=== PATIENT | male | born 1970 | race Caucasian/White ===

== ENCOUNTER 2016-07-13 16:56 | Emergency (ER) | payer SELFPAY ==
[2016-07-13 17:06] VITALS: TEMP 97.7
--- NOTE | 2016-07-13 18:22 | EDPHY ---
H & P Stated Complaint: cough/congestion x 1 month HPI/ROS: CHIEF COMPLAINT: Cough, congestion, possible flu HISTORY OF PRESENT ILLNESS: patient complains of several weeks duration of cough, congestion, body aches and feels that he may have the flu. He says he occasionally has some headaches but nothing at this time. There is occasional some neck discomfort but currently no pain or stiffness. No fever but occasional chills more prominently evening. No hemoptysis or hematuria. No joint pain. No rash of any kind. Does report being in [place] in the end of May, where he reports finding occasional tics that were removed on the same day. Since that time he has no neck pain or stiffness. He has no rash. He is up-to-date on all his immunizations. No other associated complaints or modifying factors. REVIEW OF SYSTEMS: Ten systems reviewed and are negative unless otherwise noted in the HPI EXAMINATION General Appearance: Alert, no distress Head: normocephalic, atraumatic Eyes: Pupils equal and round, no conjunctival pallor or injection ENT, Mouth: Mucous membranes moist Neck: Normal inspection, supple, non-tender , full active and passive range of motion without pain in all planes. No meningismus. Respiratory: No distress or retractions. There is mild rhonchi scattered. Cardiovascular: Regular rate and rhythm Gastrointestinal: Abdomen is soft and nontender Back: non-tender, no bony abnormalities Neurological: A&O, nonfocal, normal gait Skin: Warm and dry, no rash . No petechiae. No lesions. Extremities: Nontender, no pedal edema Psychiatric: Mood and affect normal DIFFERENTIAL DIAGNOSES: Including but not limited to Bronchitis, pneumonia, influenza, upper respiratory infection, lower respiratory infection. MDM: 18:20 Cough and congestion with possible tick exposure. The patient has no rash, neck pain, headache, neck stiffness or meningismus on examination. He is very well-appearing with normal signs all within normal limits. Lungs are mostly clear with mild rhonchi but no consolidation or evidence of pneumonia. We will obtain a chest x-ray and influenza swab. He remains hemodynamically stable and in no acute distress. Cough congestion with no pneumonia on chest x-ray. Vital signs were well within normal limits. There is no rash, meningismus or headache. Flu test is negative. Likely bronchitis versus other viral illness. No indication for emergent laboratory or imaging otherwise at this time. Discharge home with prednisone as prescribed. Recommend follow up with primary care physician, [facility] if needed. Patient is comfortable this plan and discharged home in stable condition. SUPERVISION: This patient was independently evaluated without the aide of supervising physician. - Personal History Current Tetanus/Diphtheria Vaccine: Yes Tetanus Vaccine Date: 2011 - Medical/Surgical History Hx Asthma: No Hx Chronic Respiratory Disease: No Hx Diabetes: No Hx Cardiac Disease: No Hx Renal Disease: No Hx Cirrhosis: No Hx Alcoholism: No Hx HIV/AIDS: No Hx Splenectomy or Spleen Trauma: No Other PMH: denies - Social History Smoking Status: Never smoked Constitutional: Initial Vital Signs Temperature (C) 97.7 F 07/13/16 17:03 Heart Rate 62 07/13/16 17:03 Respiratory Rate 18 07/13/16 17:03 Blood Pressure 129/84 H 07/13/16 17:03 O2 Sat (%) 95 07/13/16 17:03 O2 Delivery Mode Room Air Allergies/Adverse Reactions: No Known Allergies Allergy (Verified 07/13/16 17:01) Home Medications: Medication Instructions Recorded predniSONE 60 mg PO DAILY #15 tab 07/13/16 Medical Decision Making - Data Points Laboratory Results: 07/13/16 18:30 Influenza Typ A,B (DFA) NEGATIVE FOR FLU (NEGATIVE) Departure - Departure Disposition: Home, Routine, Self-Care Clinical Impression: Cough Acute bronchitis Qualifiers: Bronchitis organism: unspecified organism Qualifier Code: (J20.9) Acute bronchitis, unspecified Condition: Good Instructions: Acute Bronchitis (ED), Dextromethorphan (By mouth) Additional Instructions: Follow up with [facility] as discussed. ED precautions as discussed Referrals: NONE *PRIMARY CARE P,. [Primary Care Provider] - As per Instructions Prescriptions: predniSONE 60 mg PO DAILY #15 tab
--- NOTE | 2016-07-13 19:08 | DX ---
Chest, Two Views at 1836 hours History: Cough. Comparison: None. Findings: Cardiac silhouette is within normal range. No pneumonia, congestive heart failure, pleura l effusion, or pneumothorax. Impression: No definite pneumonia.
[2016-07-13 20:09] VITALS: BP 136/74; PULSE 63; RESP 16; O2SAT 94
== END 2016-07-13 20:09 | disposition home or self-care (01) ==
DX: J20.9 Acute bronchitis, unspecified (principal)

== ENCOUNTER 2018-07-11 05:49 | Emergency (ER) | payer OTHER ==
[2018-07-11] MEDS ORDERED: KETOROLAC 30 MG/1 ML SDV IVP ONE (06:19)
[2018-07-11] MEDS ORDERED: NS 1,000 ML IV ONE ×2 (06:19)
[2018-07-11] MEDS ORDERED: HYDROmorphONE/DILAUDID 2 MG/ML INJ IVP ONE (06:19)
[2018-07-11] MEDS ORDERED: ONDANSETRON 4 MG/2 ML VIAL IVP ONE (06:19)
--- NOTE | 2018-07-11 06:25 | EDPHY ---
H & P Stated Complaint: L sided flank/back pain Time Seen by Provider: 07/11/18 05:56 HPI/ROS: HPI The patient presents with left-sided flank pain which has been present for the last 1-2 hours and is getting progressively worse. He describes it as both a sharp and dull pain which comes in waves. He had similar pain about a week ago but it improved after a few hours. This pain persists. He does not have any nausea or vomiting. He does not have any difficulty urinating. He has never had this pain before.. REVIEW OF SYSTEMS 10 systems were reviewed and negative with the exception of the elements mentioned in the history of present illness. PMHx: Healthy Soc Hx: [place] PHYSICAL General Appearance: Alert, uncomfortable appearing Eyes: Pupils equal and round no pallor or injection ENT, Mouth: Mucous membranes moist Respiratory: There are no retractions, lungs are clear to auscultation Cardiovascular: Regular rate and rhythm Gastrointestinal: Abdomen is soft and non-tender, no masses, bowel sounds normal Back: There is left-sided flank tenderness Neurological: A&O, moves all extremities Skin: Warm and dry, no rashes Musculoskeletal: Neck is supple non tender Extremities: symmetrical, full range of motion Psychiatric: Patient is oriented X 3, there is no agitation Source: Patient Exam Limitations: No limitations - Personal History Current Tetanus/Diphtheria Vaccine: Yes Tetanus Vaccine Date: 2011 - Medical/Surgical History Hx Asthma: No Hx Chronic Respiratory Disease: No Hx Diabetes: No Hx Cardiac Disease: No Hx Renal Disease: No Hx Cirrhosis: No Hx Alcoholism: No Hx HIV/AIDS: No Hx Splenectomy or Spleen Trauma: No Other PMH: denies - Social History Smoking Status: Never smoked Constitutional: Initial Vital Signs Temperature (C) 36.4 C 07/11/18 05:53 Heart Rate 65 07/11/18 05:53 Respiratory Rate 18 07/11/18 05:53 Blood Pressure 140/85 H 07/11/18 05:53 O2 Sat (%) 94 07/11/18 05:53 O2 Delivery Mode Room Air Allergies/Adverse Reactions: No Known Allergies Allergy (Verified 07/13/16 17:01) Home Medications: Medication Instructions Recorded predniSONE 60 mg PO DAILY #15 tab 07/13/16 Medical Decision Making - Diagnostics Imaging Results: Imaging Impressions Chest X-Ray 07/11/18 07:40 Impression: Clear lungs. No explanation for left flank pain. CT abdomen pelvis without contrast demonstrates constipation, no kidney stone or ureterolithiasis, there are liver masses up to 8 cm in size, likely hemangiomas which will need MRI for further evaluation, right kidney lesions also seen though nothing on the left or the patient is symptomatic, on discussed with Dr. Hernandez of Radiology. Imaging: Discussed imaging studies w/ call center operator Radiologist, I viewed and interpreted images myself Differential Diagnosis: 47-year-old healthy male presents with several hours of left-sided flank pain which is intermittent. This is atraumatic. Differential diagnosis includes renal colic, pyelonephritis, less likely AAA or muscle spasm. In the emergency department, patient is given IV fluids and medication for pain. CT scans obtained. This shows constipation. He does not have any kidney stones. Interestingly he does have liver lesions as well as a few lesions on his right kidney which could be benign hemangiomas the will need follow-up with MRI. I have explained this to him. Patient's pain improved while in the emergency department. Labs were unremarkable. I discussed his testing results with him. He feels perplexed because he has bowel movements regularly and doubts that this pain is coming from constipation. I explained that I would regardless like for him to try laxatives at home to see if this helps his symptoms. He is aware that he needs more imaging studies, MRI as an outpatient as well as CT scan for surveillance in a few months. Chest x-ray was performed and was unremarkable for any pleural effusion or rib fracture. He feels concerned because he is visiting from [place] in needs to decide if he should return home. I advised him to make his decisions based on the severity of his symptoms and if he improves after taking laxatives at home then he could probably continue his trip for the next several months. As he is visiting here we have made him a copy of his imaging studies. I will send him home with magnesium citrate for his constipation. I had a long conversation with him and he will be discharged from the emergency department. - Data Points Laboratory Results: Laboratory Results 07/11/18 06:40 07/11/18 06:40 Medications Given: Discontinued Medications Hydromorphone HCl (Dilaudid) 0.5 mg IVP EDNOW ONE Stop: 07/11/18 06:20 Last Admin: 07/11/18 06:41 Dose: 0.5 mg Sodium Chloride (Ns) 1,000 mls @ 0 mls/hr IV EDNOW ONE; Wide Open PRN Reason: Protocol Stop: 07/11/18 06:20 Last Admin: 07/11/18 06:37 Dose: 1,000 mls Sodium Chloride (Ns) 1,000 mls @ 0 mls/hr IV EDNOW ONE; Wide Open PRN Reason: Protocol Stop: 07/11/18 06:20 Last Admin: 07/11/18 06:37 Dose: 1,000 mls Ketorolac Tromethamine (Toradol) 15 mg IVP EDNOW ONE Stop: 07/11/18 06:20 Last Admin: 07/11/18 06:39 Dose: 15 mg Magnesium Citrate (Magnesium Citrate) 300 ml PO ONCE ONE Stop: 07/11/18 07:41 Last Admin: 07/11/18 08:14 Dose: 300 ml Ondansetron HCl (Zofran) 4 mg IVP EDNOW ONE Stop: 07/11/18 06:20 Last Admin: 07/11/18 06:38 Dose: 4 mg Departure - Departure Disposition: Home, Routine, Self-Care Clinical Impression: Left flank pain, Constipation, Liver mass Condition: Good Instructions: Magnesium Citrate (By mouth), Constipation (ED) Additional Instructions: Your pain is probably related to constipation. Because of this you should drink plenty of fluids, and use the magnesium citrate I have given you. We did find some lesions on the liver which have likely been there for a long time but will need follow-up with more testing, probably an MRI. Referrals: Dunia Ramos MD [Medical Doctor] - As per Instructions
[2018-07-11 06:55] LABS: PLATELET COUNT 299 10^3/uL (150-400)
[2018-07-11] MEDS ORDERED: MAGNESIUM CITRATE 300 ML BOTTLE PO ONE (07:40)
[2018-07-11 08:35] VITALS: BP 119/80
== END 2018-07-11 09:38 | disposition home or self-care (01) ==
DX: K59.00 Constipation, unspecified (principal); K76.9 Liver disease, unspecified
CPT/HCPCS: 96374; J1170; J1885; J2405